=== PATIENT | female | born 1965 | race African-American/Black ===

== ENCOUNTER 2016-08-04 18:33 | Emergency (ER) | payer SELFPAY ==
[2016-08-04] MEDS ORDERED: LIDOCAINE 5% (700 MG) TRANSDERMAL ADH..PATCH TP ONE (20:38)
[2016-08-04] MEDS ORDERED: OXYCODONE-ACETAMINOPHEN 5-325 MG TABLET PO ONE (20:38)
--- NOTE | 2016-08-04 20:43 | ER Document Report ---
HPI - HPI Patient complains to provider of: Right knee joint pain Onset: Other - Chronic, worse over the past 2 weeks Onset/Duration: Worse Quality of pain: Sharp Pain Level: 3 Context: Patient states that she recently moved here 2 months ago and has not gotten established with a primary doctor or orthopedic doctor. Patient has known meniscus injury as well as arthritis to her right knee. Patient denies any new injury to her knee. Patient complains of increased pain over the past few weeks. Patient has been taking an anti-inflammatory and occasional tramadol to help her symptoms. Patient states she has been waiting for insurance to get straightened out prior to seeing the doctor. Associated Symptoms: Other - Knee joint pain Exacerbated by: Standing, Movement, Walking Relieved by: Denies Similar symptoms previously: Yes Recently seen / treated by doctor: No - ROS ROS below otherwise negative: Yes Systems Reviewed and Negative: Yes All other systems reviewed and negative - CONSTITUTIONAL Constitutional: DENIES: Fever, Chills - NEURO Neurology: DENIES: Weakness - RESPIRATORY Respiratory: DENIES: Trouble Breathing - GASTROINTESTINAL Gastrointestinal: DENIES: Nausea - MUSCULOSKELETAL Musculoskeletal: REPORTS: Extremity pain - Knee joint, Swelling - DERM Skin Color: Normal Skin Problems: None Past Medical History - General Information source: Patient - Social History Smoking Status: Never Smoker Frequency of alcohol use: None Drug Abuse: None Occupation: none Lives with: Family Family History: Reviewed & Not Pertinent Patient has suicidal ideation: No Patient has homicidal ideation: No - Past Medical History Cardiac Medical History: Reports: Hx Hypercholesterolemia Renal/ Medical History: Denies: Hx Peritoneal Dialysis Musculoskeltal Medical History: Reports Hx Arthritis Past Surgical History: Reports: Hx Hysterectomy Vertical Provider Document - CONSTITUTIONAL Agree With Documented VS: Yes Exam Limitations: No Limitations General Appearance: WD/WN, No Apparent Distress - INFECTION CONTROL TRAVEL OUTSIDE OF THE [place] IN LAST 30 DAYS: No - HEENT HEENT: Atraumatic, Normocephalic - NECK Neck: Normal Inspection - RESPIRATORY Respiratory: No Respiratory Distress O2 Sat by Pulse Oximetry: 100 - CARDIOVASCULAR Pulses: Normal: Posterior tibial, Dorsalis pedis - MUSCULOSKELETAL/EXTREMETIES Musculoskeletal/Extremeties: MAEW, FROM, Tender - generalized Right knee joint tenderness, normal skin color and temperature overlying joint. No laxity with varus or valgus maneuvers. Tenderness increases with full extension of joint., Edema - 1+ to right knee joint - NEURO Level of Consciousness: Awake, Alert, Appropriate Motor/Sensory: No Motor Deficit - DERM Integumentary: Warm, Dry, No Rash Course - Re-evaluation Re-evalutation: 08/04/16 20:39 pt Had a copy of her MRI that was performed of her right knee in March 20, 2016 demonstrating chondromalacia of the patella as well as medial and lateral meniscus tears, in the setting of advanced osteoarthritis 08/04/16 20:41 The patient has been informed that they may have pre-hypertension or hypertension based on a blood pressure reading in the emergency department. I recommend that patient call the primary care provider listed on their discharge instructions or a physician of their choice by this week to arrange follow-up for further evaluation of possible pre-hypertension her hypertension. - Vital Signs Vital signs: Temp Pulse Resp BP Pulse Ox 98.1 F 95 20 151/92 H 100 08/04/16 18:58 08/04/16 18:58 08/04/16 18:58 08/04/16 18:58 08/04/16 18:58 Discharge - Discharge Clinical Impression: Elevated blood pressure reading, Hx of chronic arthritis, History of torn meniscus of right knee Condition: Stable Disposition: HOME, SELF-CARE Instructions: Suspected Internal Knee Injury ([facility]), Oral Narcotic Medication ( [facility]), Use of Crutches ([facility]) Additional Instructions: Return immediately for any new or worsening symptoms Followup with your primary care provider, call tomorrow to make a followup appointment Your blood pressure was elevated today, recheck with primary doctor next week to have this reevaluated. Take tramadol or the pain medication Percocet, do not take both medications together. Continue to take your anti-inflammatory medication as previously prescribed. Weightbearing as tolerated, use crutches to assist with weightbearing you may use topical over the counter lidocaine patches to help with pain Prescriptions: Oxycodone HCl/Acetaminophen [Percocet 5-325 mg Tablet] 1 tab PO ASDIR PRN #20 tablet PRN Reason: Forms: Elevated Blood Pressure Referrals: [facility] [Provider Group] - Follow up in 3-5 days [facility] [Provider Group] - Follow up in 3-5 days
[2016-08-04 21:13] VITALS: BP 122/74
== END 2016-08-04 21:10 | disposition home or self-care (01) ==
LOC: ER 18:33
DX: M25.561 Pain in right knee (principal); R03.0 Elevated blood-pressure reading, without diagnosis of hypertension; M22.41 Chondromalacia patellae, right knee; E78.00 Pure hypercholesterolemia, unspecified; Z90.710 Acquired absence of both cervix and uterus
CPT/HCPCS: 99283